=== PATIENT | male | born 1945 | race Caucasian/White ===

== ENCOUNTER 2025-09-15 09:43 | Emergency (ER) | payer MEDICARE, OTHER, SELFPAY ==
--- NOTE | ~2025-09-15 | US_ITS ---
EXAMINATION: US venous doppler LE RT, 09/15/2025 13:09 SPECIAL EVENTS MANAGER HISTORY: swelling RLE, post op R hip replacement 09/07 COMPARISON: None Technique: Guidry-scale and color Doppler images were attempted of the lower saphenofemoral junction, common femoral vein,superficial femoral vein, proximal deep femoral vein, proximal deep femoral vein, popliteal vein and posterior tibial veins. Findings: Deep Venous System:There is thrombus with diminished flow in the right common femoral and femoral vessels, the remaining visualized deep venous system is unremarkable. Superficial Venous SystemNo superficial thrombophlebitis. Soft tissues: Soft tissues are unremarkable. Impression: DVT detailed above Reviewed, dictated and finalized at location P. IAL EVENTS MANAGER Impression: DVT detailed above
--- NOTE | ~2025-09-15 | CT_ITS ---
EXAMINATION: CT lumbar spine wo con DATE: 09/15/2025 10:09 INDICATION: Right lower back pain TECHNIQUE: Computed tomography (CT) of the lumbar spine was performed without intravenous contrast. Automated exposure control and iterative reconstruction technique were employed. The dose-length product was 1160.52 mGy-cm. COMPARISON: None FINDINGS: 7 degrees lumbar levocurvature. 7 mm anterolisthesis L4 on L5. 5 mm retrolisthesis L5 on S1. Vertebral body heights are normal. No fracture. 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 There is severe disc height loss at L2-L3, L4-5 and L5-S1. Moderate disc height loss at T11-T12 and T12-L1 and mild disc height loss at L1- L2 and L3-L4. Paravertebral soft tissues are unremarkable. The following disc levels are specifically discussed: T11-T12: Disc is bulging. There is severe bilateral facet joint osteoarthritis. There is moderate bilateral neural foraminal stenosis. There is mild central canal stenosis. T12-L1: The disc does not extend beyond the endplate margin. There is moderate left and severe right facet joint osteoarthritis. There is mild right neural foraminal stenosis. There is no central canal stenosis. L1-L2: Disc is mildly bulging. There is mild left and moderate right facet joint osteoarthritis. There is no neural foraminal stenosis. There is no central canal stenosis. L2-L3: Posterior endplate osteophytes. There is moderate bilateral facet joint osteoarthritis. There is moderate right and mild to moderate left neural foraminal stenosis. There is mild central canal stenosis. L3-L4: Disc is bulging. There is mild left and moderate right facet joint osteoarthritis. There is mild bilateral neural foraminal stenosis. There is mild central canal stenosis. L4-L5: Posterior disc osteophyte complex with disc extrusion with disc material extending cephalad to the level of the inferior endplate of L4 but not beyond the osteophytes along the more posterior L5 superior endplate margin. There is mild to moderate right and moderate left facet joint osteoarthritis. There is moderate bilateral neural foraminal stenosis. There is mild central canal stenosis. L5-S1: Posterior disc osteophyte complex. There is moderate bilateral facet joint osteoarthritis. There is moderate bilateral neural foraminal stenosis. There is mild central canal stenosis. IMPRESSION: 1. Severe lumbar spondylosis. No acute osseous abnormality. Reviewed, dictated and finalized at location A. AL WORKER
--- NOTE | ~2025-09-15 | CT_ITS ---
EXAM/PROCEDURE: CT pelvis wo con HISTORY: recent R hip replacement, severe pain COMPARISON: None available. TECHNIQUE: Pelvic CT without contrast FINDINGS: Patient status post right total hip replacement with bones and hardware appearing in adequate alignment; no gross hardware failure fracture loosening seen. Strandy changes present in the subcutaneous soft tissues about the right hip which are not fully included within the [id number]. Within the visualized intrapelvic contents, mild strandy changes present in the right paracolic gutter with trace amount of free fluid extending toward the cecal region. Urinary bladder is moderately distended with the dome of the bladder approaching the level of the umbilicus. The left hip and remaining pelvic bones appear intact. IMPRESSION: 1. Right hip arthroplasty hardware appears intact. The urinary bladder appears distended. Query if patient requires catheterization. 2. Incompletely visualized right hip x-ray articular soft tissues with strandy changes in the subcutaneous region may be normal postoperative changes. Correlate clinically to exclude acute superficial/subcutaneous inflammatory or infectious process about the right hip. 3. Incidental note of trace free fluid in the right paracolic gutter and right lower quadrant of uncertain significance. Reviewed, dictated and finalized at location A. PACKER IMPRESSION: 1. Right hip arthroplasty hardware appears intact. The urinary bladder appears distended. Query if patient requires catheterization. 2. Incompletely visualized right hip x-ray articular soft tissues with strandy changes in the subcutaneous region may be normal postoperative changes. Correla te clinically to exclude acute superficial/subcutaneous inflammatory or infecti ous process about the right hip. 3. Incidental note of trace free fluid in the right paracolic gutter and right lower quadrant of uncertain significance.
--- NOTE | ~2025-09-15 | CT_ITS ---
EXAMINATION: CTA chest PE protocol DATE: 09/15/2025 14:24 INDICATION: History of right lower extremity DVT. Recent history of surgery. TECHNIQUE: Computed tomography angiography (CTA) of the chest was performed with 100 mL Omnipaque-350 intravenous contrast timed to evaluate the pulmonary arteries. Coronal maximum intensity projection 3D-reconstructions were created by the technologist. Automated exposure control and iterative reconstruction technique were employed. The dose-length product was 437.95 mGy-cm. COMPARISON: Lower extremity venous Doppler study dated 09/15/2025. FINDINGS: Good opacification of the pulmonary arteries. No evidence of pulmonary emboli. Thoracic aorta shows no acute findings. No acute pulmonary findings of focal nature. Calcified gallstone in the gallbladder which is mildly distended in size in the upper abdomen. Incomplete visualization of the upper abdominal structures. IMPRESSION: 1. No evidence of pulmonary emboli. Thoracic aorta shows no acute findings. 2. Hiatus hernia. 3. Coronary artery calcification of proximal left anterior descending coronary artery and diagonal coronary artery. 4. Mildly distended gallbladder with calcified gallstone in partially visualized structures in the upper abdomen. Reviewed, dictated and finalized at location T. GY CONSERVATION SPECIALIST IMPRESSION: 1. No evidence of pulmonary emboli. Thoracic aorta shows no acute findings. 2. Hiatus hernia. 3. Coronary artery calcification of proximal left anterior descending coronary artery and diagonal coronary artery. 4. Mildly distended gallbladder with calcified gallstone in partially visualize d structures in the upper abdomen.
[2025-09-15 09:41] VITALS: BP 156/73; PULSE 95; RESP 18; TEMP 36.6; O2SAT 100
--- NOTE | 2025-09-15 10:04 | ED_ITS ---
HPI - Extremity Injury (Lower) General Chief Complaint: Extremity Injury, Lower Stated Complaint: hip pain Time Seen by Provider: 09/15/25 09:50 Source: patient Mode of arrival: EMS Limitations: no limitations History of Present Illness HPI Narrative: Patient is an 79 y/o male who presents to the ED via EMS with report of R hip pain. Patient underwent right hip replacement on 09/07 at [facility] with Dr. Blair. Reports having severe pain throughout his right hip/right lower back over the past few days. Is currently in physical therapy and able to ambulate with a walker. Is prescribed Lemitar and has been taking this, but denies improvement. EMS administered morphine EN route which did relieve his pain. Denies fevers, numbness, saddle anesthesia, recent fall or injury. Does note history of previous lumbar injury. Related Data Allergies Allergy/AdvReac Type Severity Reaction Status Date / Time No Known Allergies Allergy Verified 09/15/25 09:51 Review of Systems 2 Review of Systems: All systems reviewed & are unremarkable except as noted in HPI. All systems reviewed & are unremarkable except as noted in HPI and below Exam 2 Narrative: GENERAL: Elderly, uncomfortable-appearing, intermittent moaning in pain. In mild acute distress d/t pain. HEAD: Normocephalic, atraumatic. RESPIRATORY: Airway patent, respirations nonlabored. CARDIOVASCULAR: Regular rate and rhythm without murmurs, rubs, or gallops. Pedal pulses intact MUSCULOSKELETAL: No gross deformities. Limited ROM of RLE d/t pain. Incision site to R lateral hip with bandage in place, appears clean dry and intact. Mild surrounding hematoma formation/ecchymosis w/o significant warmth or erythema. Sensation intact throughout RLE. Some swelling throughout R lower leg compared to L. No appreciable midline lumbar spinal tenderness. SKIN: Warm, dry, normal color. NEURO: A&O X3. Speech clear. Cranial nerves II-XII grossly intact. No ataxic movements. No focal deficits. PSYCHIATRIC: Appropriate mood and affect. Normal interaction. Course Vital Signs Vital signs: Vital Signs Temperature 97.9 F 09/15/25 09:41 Pulse Rate 95 09/15/25 09:41 Respiratory Rate 18 09/15/25 09:41 Blood Pressure 156/73 H 09/15/25 09:41 Pulse Oximetry 100 09/15/25 09:41 Oxygen Delivery Room Air 09/15/25 09:41 Temperature 97.9 F 09/15/25 09:41 Pulse Rate 82 09/15/25 15:21 Respiratory Rate 16 09/15/25 15:21 Blood Pressure 142/88 H 09/15/25 15:21 Pulse Oximetry 98 09/15/25 15:21 Oxygen Delivery Room Air 09/15/25 12:38 MDM MDM Narrative Medical decision making narrative: Patient presented to ED several days status post right hip replacement with more severe pain to right hip, right lower back. Vital signs stable upon arrival. Patient neurovascularly intact. Sensation intact throughout right lower extremity. There is some swelling and bruising to right lateral hip which I feel is within the limits to be expected postoperatively. I do not appreciate any significant warmth or erythema. Bandage is C/D/I, no evidence of drainage. No obvious signs of infection. Patient is afebrile here. He does have fairly decent flexion ROM of R hip. I have low suspicion for acute septic joint at this time. Patient does reports some of his pain is more present in his right lower back. CT of lumbar spine showing severe lumbar spondylosis, but no acute osseous abnormality. He does have several bulging discs which are known to him. CT of pelvis: IMPRESSION: 1. Right hip arthroplasty hardware appears intact. The urinary bladder appears distended. Query if patient requires catheterization. 2. Incompletely visualized right hip x-ray articular soft tissues with strandy changes in the subcutaneous region may be normal postoperative changes. Correlate clinically to exclude acute superficial/subcutaneous inflammatory or infectious process about the right hip. Patient was bladder scanned and noted to have greater than 700 mL of urine in his bladder. Did attempt to urinate prior to this. He states he is otherwise typically incontinent of urine. Vazquez catheter was placed. Patient feeling significantly improved after this. Feel this was likely contributing to pain. Will be referred to urology for f/u and subsequent catheter removal. Blood work was obtained. Normal white blood cell count. Lactic acid within normal range. Again low suspicion for septic joint at this time. Feel stranding seem on imaging likely r/t surgery. Inflammatory markers are elevated, however this may also be normal postoperatively. Patient has been feeling much improved after receiving morphine by EMS. He has not required anything further for pain since being in the ED. Has been since resting comfortably. Consulted PT, who came down to evaluate patient in the ED. patient did very well with ambulatory testing with walker. Required minimal assistance, denies significant pain. Feel this is very reassuring. Discussed case with Dr. Blair's FIRE PREVENTION ENGINEER, advised will f/u with patient at scheduled appointment on Saturday. Advised can switch pain medication to oxycodone vs hydrocodone for increased pain control. Did suggest RLE venous doppler to r/o DVT Patient does have some swelling throughout his right lower leg. Could be normal postoperatively? He was placed on 2.5 mg Eliquis b.i.d. for 21 days postoperatively as precaution for dvt. Venous Doppler ultrasound here did result positive for DVT - thrombus with diminished flow in the right common femoral and femoral vessels, the remaining visualized deep venous system is unremarkable. CTA of chest was obtained and negative for PE. Trop undetectable. BNP WNL. Discussed these findings with patient. Will transition to treatment dose of Eliquis for DVT. Starter pack sent to the pharmacy - 10mg dose BID for 1 week, followed by 5mg dose BID. I did re-discuss case with Dr. Blair's FIRE PREVENTION ENGINEER, agrees w/ plan for treatment dose of Eliquis. In agreement with f/u on Saturday. Feel patient is otherwise safe for d/c back to [facility]. There is a plan in place for his surgical follow-up, increased pain control, treatment of DVT, advised will need follow-up with urology for catheter management/removal. Do not feel patient requires admission to the hospital at this time. Did discuss this with patient and family extensively at bedside. Family is in agreement and is comfortable with patient returning back to [facility]. Given strict return precautions. Patient/family voiced understanding. Discharged in stable condition. Differential Diagnosis Differential Diagnosis: Right hip pain, postoperative pain, right hip strain, right hip fx, pelvic fx, septic joint, cellulitis, DVT Medical Records I have reviewed the following patient records and this information was taken into consideration when formulating the assessment and plan.: previous labs, previous ER visits, previous hospitalizations and previous clinic visits Lab Data MDM Lab Attestation statement: I personally reviewed the patient's lab results. 09/15/25 11:27 09/15/25 11:27 Labs: Lab Results 09/15/25 09/15/25 09/15/25 Range/Units 11:26 11:27 12:14 WBC 9.3 (4.5-10.0) K/mm3 RBC 3.04 L (4.6-6.20) M/mm3 Hgb 9.7 L (14.0-18.0) g/dL Hct 28.4 L (42.0-52.0) % MCV 93.4 (80-100) fl MCH 31.9 (26-34) pg MCHC 34.2 (32-36) g/dl RDW 12.9 (11.5-14.5) % Plt Count 214 (150-375) k/mm3 MPV 8.2 (7.4-10.4) fl Immature Gran % (Auto) 0.4 (0-0.5) % Neut % (Auto) 80.7 H (45.5-73.1) % Lymph % (Auto) 10.5 L (18.3-44.2) % [place] % (Auto) 7.1 (2.6-8.5) % Eos % (Auto) 1.0 (0-4.4) % Baso % (Auto) 0.3 (0.2-1.2) % Lymph # (Auto) 0.98 (0.9-3.2) K/mm3 [place] # (Auto) 0.7 H (0.1-0.6) K/mm3 Eos # (Auto) 0.1 (0-0.3) K/mm3 Baso # (Auto) 0.0 (0.0-0.1) K/mm3 Abs Immat Gran (auto) 0.04 H (0.00-0.031) K/mm3 Absolute Neuts (auto) 7.5 H (1.3-6.7) K/mm3 Absolute Nucleated RBC 0.000 (0.0-0.012) K/mm3 Nucleated RBC % 0.0 (0.0-0.2) % ESR 124 H (0-20) mm/hr PT 13.8 (11.1-14.7) Seconds INR 1.1 APTT 28.6 (22.3-36.8) Seconds Sodium 134 L (137-145) mmol/L Potassium 5.1 H (3.4-5.0) mmol/L Chloride 103 (98-107) mmol/L Carbon Dioxide 27 (22-30) mmol/L Anion Gap 4 (4-12) mmol/L BUN 22 H (9-20) mg/dL Creatinine 1.09 (0.7-1.3) mg/dL Estim Creat Clear Calc Not Reportable Estimated GFR > 60 (59 - ) Glucose 203 H (65-110) mg/dL Lactic Acid 1.9 (0.7-2.0) mmol/L Calcium 9.1 (8.4-10.2) mg/dL Total Bilirubin 0.4 (0.2-1.3) mg/dL AST 69 H (17-59) U/L ALT 68 H (6-50) U/L Alkaline Phosphatase 92 (38-126) U/L Troponin I < 0.012 (0.000-0.034) ng/mL C-Reactive Protein 2.7 H (<1.0) mg/dL NT-Pro-B Natriuret Pep 296 H (19.9-100) pg/mL Total Protein 6.9 (6.3-8.2) g/dL Albumin 3.8 (3.5-5.1) g/dL Urine Color Yellow (Yellow) Urine Appearance Clear (Clear) Urine pH 6.5 (5.0-9.0) Ur Specific [place] 1.011 (1.001-1.035) Urine Protein Negative (Negative) mg/dL Urine Glucose (UA) Negative (Negative) mg/dL Urine Ketones Negative (Negative) mg/dL Ur Blood (Man) Negative (Negative) Urine Nitrate Negative (Negative) Urine Bilirubin Negative (Negative) Urine Urobilinogen 0.2 (<2.0) mg/dL Leukocyte Esterase Rfl Negative (Negative) MANUEL/UL Imaging Data Attestation: I personally reviewed and interpreted this imaging study as follows: Radiologist's impression: ITS Impressions Pelvis CT 09/15/25 10:10 IMPRESSION: 1. Right hip arthroplasty hardware appears intact. The urinary bladder appears distended. Query if patient requires catheterization. 2. Incompletely visualized right hip x-ray articular soft tissues with strandy changes in the subcutaneous region may be normal postoperative changes. Correlate clinically to exclude acute superficial/subcutaneous inflammatory or infectious process about the right hip. 3. Incidental note of trace free fluid in the right paracolic gutter and right lower quadrant of uncertain significance. Lumbar Spine CT 09/15/25 10:15 IMPRESSION: 1. Severe lumbar spondylosis. No acute osseous abnormality. Venous Doppler Study 09/15/25 13:41 Impression: DVT detailed above Chest CTA 09/15/25 14:25 IMPRESSION: 1. No evidence of pulmonary emboli. Thoracic aorta shows no acute findings. 2. Hiatus hernia. 3. Coronary artery calcification of proximal left anterior descending coronary artery and diagonal coronary artery. 4. Mildly distended gallbladder with calcified gallstone in partially visualized structures in the upper abdomen. Discharge Plan Discharge Clinical Impression: Acute postoperative pain of right hip, Status post right hip replacement, Urinary retention Acute deep vein thrombosis (DVT) of right lower extremity Qualifiers: Affected thrombotic vein of extremity: femoral Qualified Code(s): I82.411 - Acute embolism and thrombosis of right femoral vein Patient Disposition: NH Shelter/Asst Living Condition: Stable Instructions: Antibiotic Form, Urinary Retention in Men (ED), Deep Vein Thrombosis (ED), Hip Pain (ED), Deep Vein Thrombosis Prevention (ED) Additional Instructions: Follow up with your orthopedic surgeon at your appointment on Saturday. Take new prescription of Eliquis as prescribed for blood clot in right le mg twice daily for 1 week, followed by 5mg twice daily. Discontinue Aspirin. Take oxycodone every 4-6 hours as needed for pain instead of the hydrocodone. You can take 1000mg of Tylenol every 6 hours with the oxycodone for additional pain control. Call urology office to make follow up appointment regarding catheter removal. Return to the ED if you experience worsening or severe pain, recurrent fall or injury, head injury, rectal bleeding, dark black stools, severe pain or swelling of leg, severe swelling/bruising of right lateral hip, fevers, redness streaking up or down leg, or any other symptoms of concern. Patient Language: South Korean Prescriptions: New oxycodone 5 mg tablet 5 mg PO Q6H PRN (Reason: pain) Qty: 20 0RF Eliquis DVT-PE Treat 30D Start 5 mg (74 tabs) tablets,dose pack See Rx Instructions .ROUTE .COMPLEX Qty: 74 0RF Rx Instructions: orally per package directions Follow-up/Referrals: Quintin Soto MD [Physician, Urology] Time of Disposition: 15:08
[2025-09-15 11:34] LABS: Hematocrit 28.4 % (42.0-52.0); Hemoglobin 9.7 g/dL (14.0-18.0); Immature Granulocyte Percent A 0.4 % (0-0.5); Lymphocytes Absolute Auto 0.98 K/mm3 (0.9-3.2); Mean Corpuscular HGB Conc 34.2 g/dl (32-36); Mean Corpuscular Hemoglobin 31.9 pg (26-34); Mean Corpuscular Volume 93.4 fl (80-100); Nucleated Red Blood Cells Absolute Auto 0.000 K/mm3 (0.0-0.012); Nucleated Red Blood Cells Perc 0.0 % (0.0-0.2); Platelet Count Result 214 k/mm3 (150-375); Red Blood Count 3.04 M/mm3 (4.6-6.20); White Blood Count 9.3 K/mm3 (4.5-10.0)
[2025-09-15 11:53] LABS: Alanine Aminotransferase 68 U/L (6-50); Albumin Level 3.8 g/dL (3.5-5.1); Alkaline Phosphatase 92 U/L (38-126); Anion Gap 4 mmol/L (4-12); Aspartate Amino Transferase 69 U/L (17-59); Bilirubin,Total 0.4 mg/dL (0.2-1.3); Blood Urea Nitrogen 22 mg/dL (9-20); CRP 2.7 mg/dL (<1.0); Calcium 9.1 mg/dL (8.4-10.2); Carbon Dioxide 27 mmol/L (22-30); Chloride 103 mmol/L (98-107); Estimated Glomerular Filt Rate > 60; Glucose 203 mg/dL (65-110); Potassium 5.1 mmol/L (3.4-5.0); Sodium 134 mmol/L (137-145); Total Protein 6.9 g/dL (6.3-8.2)
[2025-09-15 12:22] LABS: Add Urine Microscopic? NO; Appearance Urine Clear (Clear); Glucose Urine UA Negative (Negative); Leukocyte Esterase Ur Negative LEU/UL (Negative); Nitrate Urine Negative (Negative); Specific Grav Ur 1.011 (1.001-1.035)
[2025-09-15 12:44] VITALS: BP 147/72; PULSE 89; RESP 14; O2SAT 98
--- NOTE | 2025-09-15 12:51 | PCCCNOTE ---
Called [facility] servando Rust ([phone]) regarding taking pt back with aaron. [facility] stated that they can take back pt with aaron, but plan for follow up and length of time the aaron would be needed would need to be included in DC orders/plan. Radha HAAS indicated that the family would be responsible for follow up with urology for aaron management and urinary retention.
[2025-09-15 13:30] VITALS: BP 142/80; PULSE 84; RESP 16; O2SAT 98
[2025-09-15] MEDS: HYDROcodone/acetaminophen (*CRX) 10-325 MG TABLET 1 TAB PO (14:38)
[2025-09-15] MEDS: ACETAMINOPHEN 325 MG TABLET 650 MG PO (14:38)
[2025-09-15 14:55] LABS: INR 1.1; Partial Thromboplastin Time 28.6 Seconds (22.3-36.8); Prothrombin Time 13.8 Seconds (11.1-14.7)
[2025-09-15 15:01] LABS: NT Pro B Type Natriuretic Pept 296 pg/mL (19.9-100); Troponin I < 0.012 ng/mL (0.000-0.034)
[2025-09-15 15:21] VITALS: BP 142/88; PULSE 82; RESP 16; O2SAT 98
[2025-09-15] MEDS: APIXABAN 5 MG TABLET 10 MG PO (15:21)
== END 2025-09-15 15:35 ==
PROVIDERS: Emergency Provider Physician Assistant; PCP Family Medicine
DX: M25.551 Pain in right hip (principal); G89.18 Other acute postprocedural pain; Z96.641 Presence of right artificial hip joint; R33.9 Retention of urine, unspecified; I82.411 Acute embolism and thrombosis of right femoral vein; M54.50 Low back pain, unspecified
CPT/HCPCS: 36415; 51702; 71275; 72131; 72192; 80053; 81003; 83605; 83880; 84484; 85025; 85610; 85652; 85730; 86140; 93971; 97161; 99284; A9270; Q9967